=== PATIENT | male | born 1995 | race Two or more races ===

== ENCOUNTER 2019-04-08 10:04 | Emergency (ER) | payer SELFPAY ==
[~2019-04-08] VITALS: Ht 180.3 cm; Wt 65.8 kg
[2019-04-08 10:42] LABS: Basophils # (auto) 0 uL; Basophils % (auto) 0.9 % (0.0-2.0); Eosinophils # (auto) 0 uL; Eosinophils % (auto) 0.9 % (0.0-7.0); Hemoglobin 15.3 g/dL (13.5-17.5); Lymphocytes # (auto) 1.4 uL; Lymphocytes % (auto) 32.5 % (10.0-50.0); Mean Corpuscular Hemoglobin 31.8 pg (28.0-32.0); Mean Corpuscular Hgb Conc. 34.7 g/dL (32.0-36.0); Mean Corpuscular Volume 91.6 fL (80.0-100.0); Monocytes # (auto) 0.3 uL; Monocytes % (auto) 7.7 % (0.0-12.0); Neutrophils # (auto) 2.5 uL; Nucleated Red Blood Cells % 0.1 %; Platelet Count (auto) 163 10^3/uL (140-450); Red Blood Cells 4.81 10^6/uL (4.5-5.90); Red Cell Distribution Width 12.4 % (11.8-14.3); White Blood Cell 4.3 10^3/uL (4.4-10.8)
[2019-04-08 11:09] LABS: Albumin 4.1 g/dL (3.4-5.0); Calcium 9.1 mg/dL (8.5-10.1); Potassium 4.5 mmol/L (3.5-5.1)
[2019-04-08 11:13] LABS: BUN/Creatinine Ratio 11.4; Bilirubin, Total 0.7 mg/dL (0.2-1.0); Total Protein 7.4 g/dL (6.4-8.2)
[2019-04-08 12:15] VITALS: BP 115/52
== END 2019-04-08 12:14 | disposition home or self-care (01) ==
LOC: ER 10:04
DX: R42 Dizziness and giddiness (principal); F41.9 Anxiety disorder, unspecified
CPT/HCPCS: 36415; 80053; 85025; 93005

== ENCOUNTER 2022-09-18 20:30 | Emergency (ER) | payer SELFPAY ==
[~2022-09-18] VITALS: Ht 180.3 cm; Wt 65.0 kg
[2022-09-18 20:30] VITALS: BP 125/67
[2022-09-18] MEDS ORDERED: ACETAMINOPHEN 500 MG TAB PO ONE (21:45)
[2022-09-19 00:44] LABS: Urine Bacteria NONE SEEN /hpf (None Seen); Urine Blood Negative /uL (Negative); Urine Mucus FEW (None Seen); Urine Specific Gravity 1.025 (1.001-1.035); Urine WBC 1 /hpf (0 - 3)
[2022-09-19] MEDS ORDERED: CEPH250C PO (13:39)
[2022-09-19] MEDS ORDERED: IBU600T PO (13:39)
[2022-09-19] MEDS ORDERED: CLIN300C70 PO (13:39)
== END 2022-09-19 02:55 | disposition left against medical advice (07) ==
LOC: ER 20:36
DX: N50.812 Left testicular pain (principal); N50.89 Other specified disorders of the male genital organs
CPT/HCPCS: 74176; 76870; 81001

== ENCOUNTER 2022-09-19 10:13 | Emergency (ER) | payer SELFPAY ==
[~2022-09-19] VITALS: Ht 180.3 cm; Wt 61.7 kg
[2022-09-19] MEDS ORDERED: KETOROLAC TROMETH 60MG/2ML VIAL IM ONE (11:30)
[2022-09-19] MEDS ORDERED: cefTRIAXone SOD 1,000 MG VL IM ONE (11:30)
[2022-09-19] MEDS ORDERED: CLIN300C70 PO (13:39)
[2022-09-19] MEDS ORDERED: CEPH250C PO (13:39)
[2022-09-19] MEDS ORDERED: IBU600T PO (13:39)
[2022-09-19 15:00] VITALS: BP 112/67
== END 2022-09-19 15:02 | disposition home or self-care (01) ==
LOC: ER 10:13
DX: N45.1 Epididymitis (principal)
CPT/HCPCS: 96372; 99284; J0696; J1885